=== PATIENT | male | born 1945 | race Caucasian/White ===

== ENCOUNTER 2016-07-04 19:42 | Inpatient (IN) | payer MEDICARE ==
[2016-07-04] MEDS ORDERED: IPRATROPIUM-ALBUTEROL 3 ML NEB INHALATION STA (19:47)
[2016-07-04] MEDS ORDERED: MORPHINE SULFATE 2 MG/ML SYRINGE IVP ONE (20:02)
[2016-07-04] MEDS ORDERED: LORazepam 2 MG/ML SYRINGE IV STA (20:02)
--- NOTE | 2016-07-04 20:11 | XR ---
EXAMINATION TYPE: XR chest 1V portable DATE OF EXAM: 07/04/2016 7:56 PM COMPARISON: NONE HISTORY: dyspnea TECHNIQUE: Single frontal view of the chest is obtained. FINDINGS: Right IJ catheter tip superimposed over the cavoatrial junction. There is ill-defined consolidative opacity throughout the left lower lobe, consistent with LLL pneumo crispin. The pleural spaces are negative. Cardiac silhouette mildly enlarged. Multiple old healed rib fractures are noted on the right. IMPRESSION: FINDINGS CONSISTENT WITH A CLINICAL DIAGNOSIS OF LEFT LOWER LOBE PNEUMONIA. Note: Follow up imaging is advised until proven resolution.
--- NOTE | 2016-07-04 20:23 | ED ---
General Adult HPI - General Chief complaint: Shortness of Breath Stated complaint: RAJ Time Seen by Provider: 07/04/16 19:46 Source: EMS, RN notes reviewed, old records reviewed Mode of arrival: EMS Limitations: altered mental status, physical limitation - History of Present Illness Initial comments: This is a 71-year-old [id number] cancer patient from [facility] for evaluation regarding severe respiratory distress. Patient unable to give history secondary medical and clinical condition. History obtained from EMS and patient's chart, per patient's chart and records he is a DO NOT RESUSCITATE. - Related Data Home Medications Medication Instructions Recorded Confirmed Acetaminophen Tab [Tylenol Tab] 650 mg PO DAILY PRN 07/04/16 07/04/16 Albuterol Sulfate [Proventil Hfa] 2 puff INHALATION RT-TID PRN 07/04/16 07/04/16 Allopurinol [Zyloprim] 300 mg PO DAILY 07/04/16 07/04/16 Amino Acids/Protein Hydrolys 30 ml PO BID 07/04/16 07/04/16 [Pro-Stat Supplement] Aspirin [Adult Low Dose Aspirin EC] 81 mg PO HS 07/04/16 07/04/16 Carvedilol [Coreg] 3.125 mg PO HS 07/04/16 07/04/16 Dexamethasone 4 mg PO Q12H 07/04/16 07/04/16 Ipratropium-Albuterol Nebulize 3 ml INHALATION RT-Q4H PRN 07/04/16 07/04/16 [Duoneb 0.5 mg-3 mg/3 ml Soln] Melatonin 3 mg PO HS 07/04/16 07/04/16 Mylanta Suspension 179-941-10zz/5ml 30 ml PO Q4H PRN 07/04/16 07/04/16 Omeprazole Magnesium Delayed 1 cap PO DAILY 07/04/16 07/04/16 Release 20.6mg Potassium Chloride ER [K-Dur 20] 20 meq PO HS 07/04/16 07/04/16 Allergies Allergy/AdvReac Type Severity Reaction Status Date / Time No Known Allergies Allergy Verified 07/04/16 20:17 Review of Systems ROS Statement: Those systems with pertinent positive or pertinent negative responses have been documented in the HPI. ROS Other: All systems not noted in ROS Statement are negative. Past Medical History Past Medical History: Unable to Obtain, Coronary Artery Disease (CAD), COPD, GERD/Reflux, Hypertension Additional Past Medical History / Comment(s): gout, idiopathic peripheral autonomic neuropathy, panctyopenia, viral meningitis, encephalopathy, deliriummyeloma, generalized weakness, arrhythmia, bph, cancer History of Any Multi-Drug Resistant Organisms: None Reported, Unobtainable Past Surgical History: Unable to Obtain Past Psychological History: No Psychological Hx Reported Smoking Status: Unknown if ever smoked Past Alcohol Use History: None Reported General Exam Limitations: altered mental status, physical limitation General appearance: alert, lethargic, in distress Head exam: Present: atraumatic, normocephalic, normal inspection Eye exam: Present: normal appearance, PERRL, EOMI. Absent: scleral icterus, conjunctival injection, periorbital swelling ENT exam: Present: normal exam, mucous membranes moist Neck exam: Present: normal inspection. Absent: tenderness, meningismus, lymphadenopathy Respiratory exam: Present: wheezes, rales, accessory muscle use, decreased breath sounds, prolonged expiratory. Absent: rhonchi, stridor Cardiovascular Exam: Present: normal rhythm, tachycardia, normal heart sounds. Absent: systolic murmur, diastolic murmur, rubs, gallop, clicks GI/Abdominal exam: Present: soft, normal bowel sounds. Absent: distended, tenderness, guarding, rebound, rigid Extremities exam: Present: normal inspection, full ROM, normal capillary refill. Absent: tenderness, pedal edema, joint swelling, calf tenderness Back exam: Present: normal inspection Neurological exam: Present: alert, oriented X3, CN II-XII intact Psychiatric exam: Present: normal affect, normal mood Skin exam: Present: warm, dry, intact, normal color. Absent: rash Course Vital Signs 07/04/16 07/04/16 07/04/16 19:44 19:55 20:10 Temperature 96.9 F L Pulse Rate 133 H 130 H 128 H Respiratory 60 H Rate Blood Pressure 125/85 O2 Sat by Pulse 97 Oximetry EKG Findings - EKG Comments: EKG Findings:: EKG shows sinus tachycardia rate 133, GA 134, QRS 98, QTC 452 Critical Care Time Critical Care Time: Yes Total Critical Care Time: 31 Disposition Clinical Impression: Acute exacerbation of chronic obstructive airways disease, Acute respiratory failure, Hypoxia, Nosocomial pneumonia Disposition: ADMITTED IP TO THIS HOSP Condition: Serious Referrals: Nabil Skinner MD [Primary Care Provider] - 1-2 days
[2016-07-04] MEDS ORDERED: LEVOFLOXACIN 750MG-D5W PMX 750 MG in DEXTROSE/WATER 1 150ML.BAG IVPB STA (20:27)
[2016-07-04] MEDS ORDERED: PIPERACILLIN-TAZOBACTAM 3.375 GM in DEXTROSE/WATER 1 50ML.BAG IVPB STA (20:27)
[2016-07-04] MEDS ORDERED: PNEUMONIA PROTOCOL UTILIZED 1 EACH MISC PO PRN (20:28)
[2016-07-04] MEDS ORDERED: SODIUM CHLORIDE 0.9% 1,000 ML IV STA (20:29)
[2016-07-04] MEDS ORDERED: SODIUM CHLORIDE 0.9% 500 ML IV STA (20:29)
[2016-07-04] MEDS ORDERED: methylPREDNISolone SOD SUCCI 125 MG/2 ML VIAL IV STA (20:29)
[2016-07-04 20:40] LABS: Anisocytosis Slight; CH 31.3; CHCM 32.8; HCT 57.3 % (39.0-53.0); HDW 2.59; HGB 18.4 gm/dL (13.0-17.5); Immature Gran Flag Marked; MCH 30.7 pg (25.0-35.0); MCHC 32.1 g/dL (31.0-37.0); MCV 95.6 fL (80.0-100.0); Mean Platelet Volume 7.5; RBC 5.99 m/uL (4.30-5.90); WBC 17.5 k/uL (3.8-10.6); WBC (Perox) 17.88
[2016-07-04 20:50] LABS: ALT 75 U/L (21-72); AST 63 U/L (17-59); Alkaline Phosphatase 94 U/L (38-126); Anion Gap 10 mmol/L; Blood Urea Nitrogen 45 mg/dL (9-20); Calcium 8.5 mg/dL (8.4-10.2); Carbon Dioxide 26 mmol/L (22-30); Chloride 109 mmol/L (98-107); Glucose 133 mg/dL (74-99); Magnesium 1.8 mg/dL (1.6-2.3); Non-African American GFR(MDRD) >60 (>60 ml/min/1.73 sqM); Potassium 5.3 mmol/L (3.5-5.1); Sodium 145 mmol/L (137-145); Total Bilirubin 1.3 mg/dL (0.2-1.3); Total Protein 5.3 g/dL (6.3-8.2)
[2016-07-04 20:58] LABS: Creatine Kinase <20 U/L (55-170)
[2016-07-04 20:59] LABS: Add Differential Manual Differential
[2016-07-04 21:02] LABS: Manual Review Performed; Nucleated Red Blood Cells 0 /100 WBC (0-0); Total Cells Counted 100
[2016-07-04 21:11] LABS: Creatine Kinase MB 1.2 ng/mL (0.0-2.4); Troponin I 0.024 ng/mL (0.000-0.034)
[2016-07-04 21:23] LABS: INR 1.7 (<1.1); Partial Thromboplastin Time 24.9 sec (22.0-30.0); Prothrombin Time 16.9 sec (9.0-12.0)
[2016-07-04] MEDS ORDERED: RX INFO: IV CONTRAST WAS GIVEN 1 EACH MISC MISCELLANE PRN (21:47)
[2016-07-04] MEDS: SODIUM CHLORIDE 0.9% 1,000 ML IV SCH (22:38)
--- NOTE | 2016-07-04 22:43 | CT ---
EXAM: CT Angiography Chest With Intravenous Contrast CLINICAL HISTORY: Reason: Pain TECHNIQUE: Axial computed tomographic angiography images of the chest with intravenous contrast using pulmonary embolism protocol. CTDI is 51.30 mGy and DLP is 445.60 mGy-cm This CT exam was performed using one or more of the following dose reduction techniques: automated exposure control, adjustment of the mA and/or kV according to patient size, and/or use of iterative reconstruction technique. MIP reconstructed images were created and reviewed. COMPARISON: No relevant prior studies available. FINDINGS: Artifacts: Motion related artifact is present. Pulmonary arteries: No central or segmental PE is seen; assessment of the peripheral, subsegmental branches is limited. Aorta: No thoracic aortic aneurysm. Lungs: Extensive consolidation involving most of the left lower lobe, with patchy infiltrates elsewhere including left upper lobe, right upper and lower lobes, the latter appearing somewhat nodular and measuring up to 2.9 cm on series 5 image 94. Pleural space: Trace left pleural effusion. No pneumothorax. Heart: Coronary artery calcification is present. Mild cardiomegaly and suggestion of mild left ventricular hypertrophy. No significant pericardial effusion. Bones/joints: The bones are osteopenic and there are multiple chronic appearing fractures, involving multiple ribs, left L1 and L2 transverse processes, and as partially included the distal left clavicle. There is a lucent focus present within the T11 vertebral body. There is diffuse sclerosis of the L1 vertebral body and posterior elements, as well as diffusely sclerotic appearance of the left fourth rib posteriorly. There has been previous lower cervical fusion. Lymph nodes: No adenopathy is seen.. Stomach and bowel: Distended stomach, filled with air and small amount of layering fluid where there is a total present in the gastric fundus. IMPRESSION: 1. Limited, without evidence of central or segmental PE. 2. Diffuse left lower lobe consolidation, with multifocal patchy infiltrates elsewhere throughout the lungs, suggesting the presence of ongoing airspace disease/pneumonia. Correlate clinically, and follow-up is recommended to ensure clearing and exclude other etiologies. 3. Diffuse osteopenia with multiple nonacute rib fractures as well as lucent and sclerotic lesions as above. Is there a known history of primary neoplasm or myeloma?
[2016-07-05] MEDS ORDERED: MORPHINE SULFATE 2 MG/ML SYRINGE IVP ONE (02:11)
[2016-07-05] MEDS ORDERED: LORazepam 2 MG/ML SYRINGE IV STA (02:11)
[2016-07-05 04:00] LABS: Glucose,Whole Blood 161 mg/dL (75-99)
[2016-07-05 05:19] LABS: Anisocytosis Slight; CH 30.7; CHCM 32.1; HCT 52.2 % (39.0-53.0); HDW 2.55; HGB 16.4 gm/dL (13.0-17.5); MCH 30.1 pg (25.0-35.0); MCHC 31.4 g/dL (31.0-37.0); MCV 95.8 fL (80.0-100.0); Mean Platelet Volume 7.8; RBC 5.45 m/uL (4.30-5.90); RDW 16.7 % (11.5-15.5); WBC 13.2 k/uL (3.8-10.6)
[2016-07-05 05:46] LABS: Anion Gap 8 mmol/L; Blood Urea Nitrogen 44 mg/dL (9-20); Calcium 8.1 mg/dL (8.4-10.2); Carbon Dioxide 27 mmol/L (22-30); Chloride 111 mmol/L (98-107); Glucose 151 mg/dL (74-99); Magnesium 1.9 mg/dL (1.6-2.3); Non-African American GFR(MDRD) >60 (>60 ml/min/1.73 sqM); Phosphorous 5.3 mg/dL (2.5-4.5); Potassium 4.4 mmol/L (3.5-5.1); Sodium 146 mmol/L (137-145)
[2016-07-05] MEDS ORDERED: Magnesium Replacement Protocol 1 EACH MISC MISCELLANE PRN (06:00)
[2016-07-05] MEDS: MAGNESIUM SULFATE-D5W PMX 1 GM in DEXTROSE/WATER 1 100ML.BAG IVPB SCH ×2 (06:40→08:42)
[2016-07-05] MEDS: SODIUM CHLORIDE 0.9% 1,000 ML IV SCH ×2 (06:40→16:30)
[2016-07-05 06:48] LABS: Appearance,Urine Clear (Clear); Bilirubin,Urine Negative (Negative); Glucose,Urine (UA) Negative (Negative); Ketones,Urine Negative (Negative); Leukocyte Esterase,Urine Negative (Negative); Nitrite,Urine Negative (Negative); PH, Urine 5.5 (5.0-8.0); Protein,Urine Trace (Negative); Specific Gravity,Urine 1.044 (1.001-1.035); UA Billing (MACRO vs. MICRO) CHEM; Urobilinogen,Urine <2.0 mg/dL (<2.0)
[2016-07-05] MEDS: IPRATROPIUM-ALBUTEROL 3 ML NEB INHALATION SCH ×3 (07:28→17:14)
[2016-07-05] MEDS ORDERED: PIPERACILLIN-TAZOBACTAM 3.375 GM in DEXTROSE/WATER 1 50ML.BAG IVPB SCH (08:00)
[2016-07-05] MEDS ORDERED: ENOXAPARIN 40 MG/0.4 ML SYRINGE SQ SCH (09:00)
[2016-07-05 09:03] LABS: Glucose,Whole Blood 129 mg/dL (75-99)
--- NOTE | 2016-07-05 09:35 | XR ---
EXAMINATION TYPE: XR chest 1V portable DATE OF EXAM: 07/05/2016 6:23 AM COMPARISON: 07/04/2016 HISTORY: Shortness of breath TECHNIQUE: Single frontal view of the chest is obtained. FINDINGS: Mediport catheter and surgical clips in the axilla noted. Arthropathy of the shoulders. Le ft-sided consolidation and pleural effusion is stable. Chronic rib deformities noted. Arthropathy of the shoulders. Previous surgery involving the cervical spine. IMPRESSION: 1. Left lower lobe infiltrate and small effusion are stable.
[2016-07-05] MEDS ORDERED: SODIUM CHLORIDE 0.9% 1,000 ML IV ONE (09:50)
[2016-07-05 10:01] LABS: Glucose,Whole Blood 135 mg/dL (75-99)
[2016-07-05 10:19] LABS: ABG HCO3 22 mmol/L (21-25); ABG PCO2 30 mmHg (35-45); ABG PH 7.48 (7.35-7.45); ABG PO2 73 mmHg (83-108); ABG TCO2 23 mmol/L (19-24)
[2016-07-05 12:06] LABS: Glucose,Whole Blood 112 mg/dL (75-99)
[2016-07-05] MEDS ORDERED: ACETAMINOPHEN TAB 325 MG TAB PO PRN (13:01)
[2016-07-05] MEDS ORDERED: MAG HYDROX/AL HYDROX/SIMETH 30 ML CUP PO PRN (13:01)
[2016-07-05 13:10] LABS: Hemoglobin A1C 5.2 % (4.2-6.1)
[2016-07-05] MEDS ORDERED: DEXAMETHASONE 4 MG TAB PO SCH (13:15)
[2016-07-05 14:05] LABS: Glucose,Whole Blood 125 mg/dL (75-99)
--- NOTE | 2016-07-05 14:12 | HP ---
DATE OF ADMISSION: Most of the history is obtained from the medical records. It appears like patient has advanced multiple myeloma. Patient is not on any treatment. I do not know the further details. Patient at one point of time was treated. Patient has 2 Power of Attorneys who are [id number] in [place] and patient's CODE STATUS IS DO NOT RESUSCITATE. Patient basically was sent in here because of severe respiratory distress, found to have pneumonia on CT angio of the chest which was done which showed left lower lobe consolidation, multiple patchy opacities and although I am not able to open up the images, which I will try to do it in a different computer and diffuse osteopenia consistent with multiple myeloma and patient is arousable. Patient is on 100% nonrebreather at this point of time. Patient is on broad-spectrum antibiotics and covering for healthcare-associated pneumonia since he is a residential resident and I do not know his baseline, which is not available even to the nursing staff. Will get in touch with the residential to evaluate for his baseline, so that it will help us make decisions for his long-term goals of care including hospice which the patient is more approximate for. Patient was started Zosyn and levofloxacin. For now will continue with that. Blood cultures and sputum cultures were obtained. So far they are negative and patient has severe sepsis with lactic acidosis, acute right hypoxic respiratory failure secondary to pneumonia. REVIEW OF SYSTEMS: Unable to obtain due to his clinical condition and above-mentioned reasons. Home medications include acetaminophen, albuterol, allopurinol, amino acids, aspirin, Coreg, Decadron, Mylanta, potassium chloride. ALLERGIES: No known drug allergies. PAST MEDICAL HISTORY: Unable to obtain, but patient appears to have multiple myeloma, not on any treatment, COPD, gastroesophageal reflux disease and I do not know his baseline mental status. Patient appears to have significant toxic encephalopathy and acute hypoxic respiratory failure. SOCIAL HISTORY: Unable to obtain. FAMILY HISTORY: Unable to obtain. PHYSICAL EXAMINATION: VITAL SIGNS: Temperature 97.5, pulse of 103, respiratory rate of 20, and blood pressure is 120/67, saturating at 92% on 10 L of O2 by 100% nonrebreather. GENERAL: Patient is arousable, excessively drowsy, unable to assess orientation. NEUROLOGICAL: Unable to assess due to above-mentioned reasons. LUNG EXAMINATION: Diffuse crackles in the left lower lung field, bronchophony and egophony were appreciated, rhonchorous breath sounds. HEENT: Pupils are round and equally reacting to light. EOMI. No scleral icterus. No conjunctival pallor. Normocephalic, atraumatic. No pharyngeal erythema. No thyromegaly. CARDIOVASCULAR: S1 and S2 present. No murmurs, rubs, or gallops. ABDOMEN: Patient does have a colostomy bag in place. Patient does have stool in colostomy bag. Patient has a wound V.A.C. MUSCULOSKELETAL: No joint swelling or deformity. EXTREMITIES: No cyanosis, clubbing, or pedal edema. NEUROLOGICAL: Gross neurological examination did not reveal any focal deficits. SKIN: No rashes. . LABORATORY DATA: CBC, CMP are abnormal for elevated WBC count of 7,500, sodium of 146, potassium 4.4, his potassium was elevated to 5.3, BUN and creatinine essentially within normal limits but not for his body mass, may be can consider as renal failure for his body mass, lactic acid is 2.7 came down to 2.3 and now getting IV fluids. ASSESSMENT AND PLAN: 1. Severe sepsis secondary to a ( ) pneumonia. Patient is on above-mentioned antibiotics. Will obtain blood cultures, sputum cultures. 2. Acute hypoxic respiratory failure secondary to left lower lobe pneumonia and possibility of chronic obstructive pulmonary disease. Patient is also on systemic steroids, inhalational treatments. 3. Toxic encephalopathy from pneumonia. 4. Multiple myeloma. Patient's disease appears to be advanced. The patient is most appropriate for comfort care. Will discuss the same thing with the family members today, once we find them and will also have to find the baseline. Patient is critically ill with severe sepsis, lactic acidosis for which will continue with IV fluids. Patient's tachycardia appears to be reflex tachycardia. 5. Gastroesophageal reflux disease. MTDD
[2016-07-05 14:22] VITALS: BMI 22.1
[2016-07-05] MEDS ORDERED: HYDROmorphone 1 MG/ML 1 ML SYRINGE IVP PRN (14:29)
[2016-07-05] MEDS ORDERED: HALOPERIDOL LACTATE 5 MG/ML 1 ML VIAL IM PRN (14:29)
[2016-07-05] MEDS ORDERED: ONDANSETRON 4 MG/2 ML VIAL IVP PRN (14:29)
[2016-07-05] MEDS ORDERED: POLYETHYLENE GLYCOL 3350 17 GM POWD.PACK PO PRN (14:29)
--- NOTE | 2016-07-05 14:32 | P.CNPUL ---
History of Present Illness Consult date: 07/05/16 Requesting physician: Victorino Guo Reason for consult: pneumonia Chief complaint: Altered mental status and physical limitation History of present illness: This is a 71-year-old white male senior care resident with history of multiple myeloma, peripheral autonomic neuropathy, history of pancytopenia, viral meningitis, encephalopathy, generalized weakness, gout, patient has been chronically ill because of his underlying multiple myeloma. He was brought in last night to the ER with mostly complaints of mental status change and medical debility and physical limitation. Patient was also complaining of shortness of breath and he was not noted to be in severe respiratory distress upon arrival. The patient himself is a very poor historian. Hence workup in the ER included CT of the chest showing no evidence of pulmonary embolism, however there was extensive consolidation involving most of the left lower lobe with patchy infiltrates noted in the left upper lobe and right upper lobe as well as right lower lobe. The infiltrates have a nodular appearance to them. There was also a trace of left pleural effusion. No evidence of pericardial effusion noted. CBC showed leukocytosis with WBC count of 17.5, hemoglobin was 18.4, platelets were low at 1 23,000s, d-dimer was 10.09 INR of 1.7. ABG in the ICU showed a pO2 of 73 pCO2 of 30 and pH of 7.48 and this was on a non-rebreather mask. Basic metabolic profile showed slight hypernatremia, BUN of 45 creatinine of 0.70. Sugar of 133. Lactic acid upon arrival was 2.7, follow-up lactic acid was 2.3. Liver enzymes were borderline elevated. Pro BNP was slightly elevated. Albumin was 2.8. Urinalysis was relatively unremarkable. Patient was given fluid boluses in the ER, started empirically on antibiotics, and he was admitted to the ICU with DO NOT RESUSCITATE CODE STATUS, and I was asked to see him on consultation. Again the patient is a very poor historian, he looks chronically ill frail, and debilitated. Review of Systems ROS unobtainable: due to mental status Past Medical History Past Medical History: Unable to Obtain, Coronary Artery Disease (CAD), COPD, GERD/Reflux, Hypertension Additional Past Medical History / Comment(s): gout, idiopathic peripheral autonomic neuropathy, panctyopenia, viral meningitis, encephalopathy, deliriummyeloma, generalized weakness, arrhythmia, bph, cancer History of Any Multi-Drug Resistant Organisms: None Reported, Unobtainable Past Surgical History: Unable to Obtain Past Psychological History: No Psychological Hx Reported Smoking Status: Unknown if ever smoked Past Alcohol Use History: None Reported Medications and Allergies Home Medications Medication Instructions Recorded Confirmed Type Acetaminophen Tab [Tylenol Tab] 650 mg PO DAILY PRN 07/04/16 07/04/16 History Albuterol Sulfate [Proventil Hfa] 2 puff INHALATION RT-TID PRN 07/04/16 History Allopurinol [Zyloprim] 300 mg PO DAILY 07/04/16 07/04/16 History Amino Acids/Protein Hydrolys 30 ml PO BID 07/04/16 07/04/16 History [Pro-Stat Supplement] Aspirin [Adult Low Dose Aspirin EC] 81 mg PO HS 07/04/16 07/04/16 History Carvedilol [Coreg] 3.125 mg PO HS 07/04/16 07/04/16 History Dexamethasone 4 mg PO Q12H 07/04/16 07/04/16 History Ipratropium-Albuterol Nebulize 3 ml INHALATION RT-Q4H PRN 07/04/16 07/04/16 History [Duoneb 0.5 mg-3 mg/3 ml Soln] Melatonin 3 mg PO HS 07/04/16 07/04/16 History Mylanta Suspension 468-852-00xm/5ml 30 ml PO Q4H PRN 07/04/16 07/04/16 History Omeprazole Magnesium Delayed 1 cap PO DAILY 07/04/16 07/04/16 History Release 20.6mg Potassium Chloride ER [K-Dur 20] 20 meq PO HS 07/04/16 07/04/16 History Allergies Allergy/AdvReac Type Severity Reaction Status Date / Time No Known Allergies Allergy Verified 07/04/16 20:17 Physical Exam Vitals: Vital Signs Temp Pulse Pulse Resp BP Pulse Ox 07/05/16 13:00 107 H 32 H 125/72 91 L 07/05/16 12:50 107 H 35 H 125/72 07/05/16 12:40 107 H 36 H 122/66 91 L 07/05/16 12:30 107 H 32 H 122/66 93 L 07/05/16 12:20 109 H 32 H 122/66 94 L 07/05/16 12:10 108 H 34 H 129/73 93 L 07/05/16 12:00 97.5 F L 109 H 37 H 129/73 92 L 07/05/16 11:50 108 H 28 H 129/73 93 L 07/05/16 11:40 106 H 29 H 130/71 93 L 07/05/16 11:30 104 H 29 H 130/71 94 L 07/05/16 11:27 103 H 07/05/16 11:20 103 H 30 H 130/71 94 L 07/05/16 11:17 102 H 07/05/16 11:10 104 H 33 H 120/67 93 L 07/05/16 11:00 104 H 21 120/67 96 07/05/16 10:50 102 H 23 120/67 94 L 07/05/16 10:40 99 23 112/71 94 L 07/05/16 10:30 102 H 25 H 112/71 94 L 07/05/16 10:20 100 22 112/71 94 L 07/05/16 10:10 102 H 23 121/71 93 L 07/05/16 10:00 99 24 121/71 90 L 07/05/16 09:50 101 H 26 H 121/71 92 L 07/05/16 09:40 101 H 28 H 127/60 91 L 07/05/16 09:30 101 H 27 H 127/60 93 L 07/05/16 09:20 102 H 25 H 127/60 92 L 07/05/16 09:10 99 24 136/66 93 L 07/05/16 09:00 98 23 136/66 92 L 07/05/16 08:50 100 26 H 136/66 91 L 07/05/16 08:40 100 26 H 121/66 90 L 07/05/16 08:30 98 25 H 121/66 91 L 05 08:20 98 24 121/66 92 L 07/05/16 08:10 96 26 H 108/66 91 L 07/05/16 08:00 97.5 F L 96 22 108/66 91 L 0417 07:50 98 22 108/66 90 L 07/05/16 07:40 97 21 118/78 91 L 07/05/16 07:38 97 04 07:30 99 20 118/78 92 L 05 07:28 99 05//17 07:20 98 15 118/78 90 L 07/05/16 07:10 96 24 131/70 90 L 07/05/16 07:00 95 24 131/70 92 L 07/05/16 06:50 96 24 131/70 89 L 07/05/16 06:40 95 24 119/73 92 L 07/05/16 06:30 93 12 119/73 93 L 07/05/16 06:20 93 27 H 119/73 92 L 07/05/16 06:10 91 28 H 119/74 96 07/05/16 06:00 94 31 H 119/74 97 07/05/16 05:50 98 28 H 119/74 97 07/05/16 05:40 94 25 H 115/66 98 07/05/16 05:30 92 24 115/66 98 07/05/16 05:20 95 26 H 115/66 98 07/05/16 05:10 94 24 119/68 98 07/05/16 05:00 93 23 119/68 98 07/05/16 04:50 93 25 H 119/68 97 07/05/16 04:40 93 28 H 118/75 100 07/05/16 04:34 96 24 07/05/16 04:30 91 24 118/75 99 07/05/16 04:20 91 29 H 118/75 99 07/05/16 04:10 93 31 H 112/70 97 07/05/16 04:00 97.7 F 89 21 112/70 98 07/05/16 03:37 97.2 F L 89 23 106/71 99 07/05/16 03:07 92 22 110/70 98 07/05/16 02:37 92 21 106/68 97 07/05/16 02:07 94 21 105/71 99 07/05/16 01:37 94 24 100/67 95 07/05/16 01:07 94 22 100/67 94 L 07/05/16 00:07 98 22 104/70 99 07/04/16 23:37 102 H 22 109/64 94 L 07/04/16 22:37 106 H 22 100/52 99 07/04/16 21:37 108 H 24 131/73 97 07/04/16 21:03 117 H 22 97/69 97 Intake and Output 0507/05/16 07/05/16 22:59 06:59 14:59 Intake Total 300 312.5 Output Total 635 172 Balance -335 140.5 Intake: IV 300 312.5 Magnesium Sulfate-D5w Pmx 100 1 gm In Dextrose/Water 1 100ml.bag @ 100 mls/hr IVPB Q1H POLA Rx#: [id number] Piperacillin-Tazobactam 3 12.5 .375 gm In Dextrose/Water 1 50ml.bag @ 12.5 mls/hr IVPB ONCE STA Rx#: [id number] Sodium Chloride 0.9% 1, 300 200 000 ml @ 100 mls/hr IV . Q10H POLA Rx#:[id number] Output: Urine 635 172 Other: Voiding Method Indwelling Catheter Indwelling Catheter Weight 74 kg Physical Exam: Revealed a 71-year-old white male, chronically ill, debilitated, on non-rebreather mask, not in distress, but noted to be a bit drowsy/arousable. HEENT:[Neck is supple.] [No neck masses.] [No thyromegaly.] [No JVD.] Chest: Diffuse crackles at the bases especially at the left base, rhonchi bilaterally were noted..] Cardiac Exam: [Normal S1 and S2, no S3 gallop, no murmur.] Abdomen: [Soft, nontender, no megaly, no rebound, no guarding, normal bowel sounds.] Extremities: [No clubbing, trace edema, no cyanosis.] Neurological Exam: Patient is generally weak, debilitated, does not follow instructions. Results - Laboratory Findings CBC and BMP: 07/05/16 04:55 07/05/16 04:55 ABG ABG pH 7.48 (7.35-7.45) H 07/05/16 10:15 ABG pCO2 30 mmHg (35-45) L 07/05/16 10:15 ABG pO2 73 mmHg (83-108) L 07/05/16 10:15 ABG O2 Saturation 96.0 % (94-97) 07/05/16 10:15 PT/INR, D-dimer PT 16.9 sec (9.0-12.0) H 07/04/16 20:15 INR 1.7 (<1.1) 05/03/17 20:15 D-Dimer 10.09 mg/L FEU (<0.60) H 07/04/16 20:15 Abnormal lab findings: Abnormal Labs 07/05/16 07/05/16 07/05/16 03:57 04:55 04:55 WBC 13.2 H RDW 16.7 H Plt Count 81 L ABG pH ABG pCO2 ABG pO2 Sodium Chloride BUN Creatinine Glucose POC Glucose (mg/dL) 161 H Plasma Lactic Acid Jeyson 2.3 H* Calcium Phosphorus Ur Specific [place] Urine Protein 07/05/16 07/05/16 07/05/16 04:55 06:31 09:02 WBC RDW Plt Count ABG pH ABG pCO2 ABG pO2 Sodium 146 H Chloride 111 H BUN 44 H Creatinine 0.60 L Glucose 151 H POC Glucose (mg/dL) 129 H Plasma Lactic Acid Jeyson Calcium 8.1 L Phosphorus 5.3 H Ur Specific [place] 1.044 H Urine Protein Trace H 07/05/16 07/05/16 07/05/16 09:59 10:15 12:05 WBC RDW Plt Count ABG pH 7.48 H ABG pCO2 30 L ABG pO2 73 L Sodium Chloride BUN Creatinine Glucose POC Glucose (mg/dL) 135 H 112 H Plasma Lactic Acid Jeyson Calcium Phosphorus Ur Specific [place] Urine Protein 07/05/16 14:02 WBC RDW Plt Count ABG pH ABG pCO2 ABG pO2 Sodium Chloride BUN Creatinine Glucose POC Glucose (mg/dL) 125 H Plasma Lactic Acid Jeyson Calcium Phosphorus Ur Specific [place] Urine Protein - Diagnostic Findings Chest x-ray: image reviewed CT scan - chest: image reviewed (As noted above in my history of the present illness.) Assessment and Plan Plan: Impression: 1Acute sepsis secondary to pneumonia mostly involving the left lower lobe. This is likely a healthcare associated pneumonia since the patient was a senior care resident for quite some time. 2 acute multifocal pneumonia but mostly involving the left lower lobe. 3 acute hypoxic respiratory failure secondary to pneumonia, possible underlying COPD. 4 history of multiple myeloma, advanced. Last chemotherapy was over 6 months ago. 5 acute metabolic encephalopathy secondary to sepsis. Recommendation: Continue present treatment plan including fluids, pressors if needed, antibiotics, patient is presently on Levaquin and Zosyn. These will be adjusted based on any positive cultures if available. Continue bronchodilators. Continue GI and DVT prophylaxis. Close monitoring of the sugars. Patient is not a good candidate for bronchoscopy and left lower lobe evaluation at this point. Hence we will have to treat empirically. Prognosis is definitely poor and guarded. Time with Patient: Greater than 30
[2016-07-05] MEDS ORDERED: SCOPOLAMINE 1.5MG/72HR PATCH TRANSDERM PRN (15:00)
[2016-07-05 16:55] VITALS: TEMP 98.6
[2016-07-05] MEDS ORDERED: INSULIN LISPRO (humaLOG) 300 UNIT/3 ML VIAL SQ SCH (17:30)
[2016-07-05 18:01] VITALS: BP 132/68; PULSE 108; RESP 36
[2016-07-05] MEDS ORDERED: METOPROLOL TARTRATE 25 MG TAB PO SCH (21:00)
[2016-07-05] MEDS ORDERED: ASPIRIN 81 MG CHEW PO SCH (21:00)
[2016-07-05] MEDS ORDERED: LEVOFLOXACIN 750MG-D5W PMX 750 MG in DEXTROSE/WATER 1 150ML.BAG IVPB SCH (21:00)
[2016-07-05] MEDS ORDERED: NON-FORMULARY DRUG (Amino Acids/Protein Hydrolys [Pro-Stat Supplement] 30 ML) PO SCH (21:00)
[2016-07-06] MEDS ORDERED: PANTOPRAZOLE 40 MG TABLET PO SCH (07:30)
--- NOTE | 2016-07-24 10:34 | DS ---
DATE OF ADMISSION: 07/04/2016 DATE OF DISCHARGE: 07/05/2016 DATE OF SERVICE: 07/05/2016 Patient was made comfort care. Please refer to my dictation of H&P for further details.
== END 2016-07-05 18:10 | disposition hospice, inpatient (51) | DRG 871 ==
LOC: EC 19:42 → 6ICU 20:28
PROVIDERS: ADMIT Hospitalist; ATTEND Hospitalist
DX: A41.9 Sepsis, unspecified organism (principal); J18.9 Pneumonia, unspecified organism; J96.01 Acute respiratory failure with hypoxia; G92 Toxic encephalopathy; E87.2 Acidosis; C90.00 Multiple myeloma not having achieved remission; E87.0 Hyperosmolality and hypernatremia; J44.0 Chronic obstructive pulmonary disease with (acute) lower respiratory infection; R65.20 Severe sepsis without septic shock; Z66 Do not resuscitate; Z51.5 Encounter for palliative care; Y95 Nosocomial condition; G90.09 Other idiopathic peripheral autonomic neuropathy; K21.9 Gastro-esophageal reflux disease without esophagitis; M10.9 Gout, unspecified; I25.10 Atherosclerotic heart disease of native coronary artery without angina pectoris; N40.0 Benign prostatic hyperplasia without lower urinary tract symptoms; M85.80 Other specified disorders of bone density and structure, unspecified site; I10 Essential (primary) hypertension; Z79.82 Long term (current) use of aspirin; Z79.899 Other long term (current) drug therapy
CPT/HCPCS: 36415; 36600; 71010; 71275; 80048; 80053; 81003; 82550; 82553; 82805; 83036; 83605; 83735; 83880; 84100; 84484; 85025; 85027; 85379; 85610; 85730; 87040; 87077; 87086; 87186; 93005; 94640; 94660; 96365; 96366; 96368; 96375; 99291

== ENCOUNTER 2016-07-05 18:14 | Inpatient (IN) | payer MEDICAID ==
[2016-07-05 18:40] VITALS: BMI 22.1
[2016-07-05] MEDS ORDERED: LORazepam 2 MG/ML SYRINGE IV PRN (18:49)
[2016-07-05] MEDS ORDERED: BISACODYL 10 MG SUPP RECTAL PRN (18:53)
[2016-07-05] MEDS ORDERED: ACETAMINOPHEN SUPPOSITORY 650 MG SUPP RECTAL PRN (18:54)
[2016-07-05] MEDS ORDERED: ONDANSETRON 4 MG/2 ML VIAL IVP PRN (18:55)
[2016-07-05] MEDS ORDERED: MORPHINE SULFATE 100 MG in SODIUM CHLORIDE 0.9% 100 ML IV SCH (19:00)
[2016-07-05] MEDS ORDERED: SCOPOLAMINE 1.5MG/72HR PATCH TRANSDERM SCH (19:00)
[2016-07-05] MEDS ORDERED: IPRATROPIUM-ALBUTEROL 3 ML NEB INHALATION SCH (20:00)
[2016-07-05] MEDS ORDERED: IPRATROPIUM-ALBUTEROL 3 ML NEB INHALATION PRN (20:42)
[2016-07-06] MEDS ORDERED: ATROPINE OPHTH SOLN 1% 5ML BTL SUBLINGUAL PRN (10:47)
[2016-07-06] MEDS ORDERED: SCOPOLAMINE 1.5MG/72HR PATCH TRANSDERM SCH ×2 (11:00→11:15)
[2016-07-06] MEDS: ATROPINE OPHTH SOLN 1% 5ML BTL SUBLINGUAL SCH ×3 (11:17→21:20)
[2016-07-06 16:18] VITALS: BP 116/73; PULSE 134; RESP 24; TEMP 98.6
--- NOTE | 2016-07-06 16:26 | P.PN ---
Subjective Date of service 07/06/2016 Progress note being dictated for Dr. Dey General history: This a 71-year-old gentleman admitted with severe sepsis secondary to healthcare associated pneumonia-, lactic acidosis, acute hypoxic respiratory failure, toxic encephalopathy in a patient with advanced multiple myeloma, on comfort care with hospice-[facility]. Maintained on morphine drip, increased secretions, restless, opens eyes to noxious stimuli. Mottling extremities. Objective - Vital Signs Vital signs: Vital Signs Temp 97.0 F L 07/06/16 07:00 Pulse 108 H 07/06/16 07:00 Resp 23 07/06/16 07:00 BP 143/71 07/06/16 07:00 Pulse Ox 86 L 07/06/16 07:00 Intake & Output 07/05/16 07/06/16 07/06/16 18:59 06:59 18:59 Intake Total 4.383 15.125 Balance 4.383 15.125 Weight 74 kg 74 kg Intake: Intake, IV Titration 4.383 15.125 Amount Morphine Sulfate 100 mg 4.383 15.125 In Sodium Chloride 0.9% 100 ml @ Titrate IV .Q0M [facility] Rx#:[id number] Other: Voiding Method Indwelling Catheter - Exam PHYSICAL EXAM: GENERAL: [Lying in bed, restless, opens eyes to turning-noxious stimuli only RESPIRATORY EFFORT:increased LUNGS: Scattered rhonchi and crackles throughout increased secretions CARDIOVASCULAR regular S1 and S2 no murmur rub or gallop GI: [Abdomen soft, nontender, nondistended Assessment and Plan Plan: 1. [Severe sepsis secondary to healthcare associated pneumonia-acute multifocal pneumonia -mostly left lower lobe, lactic acidosis with reflex tachycardia]. 2. [Acute hypoxic respiratory failure secondary to left lobe pneumonia, possible COPD exacerbation]. 3. [Acute Toxic, metabolic encephalopathy from sepsis, pneumonia]. 4. [Multiple myeloma, advanced, ]. 5. [Gastroesophageal reflux disease]. 6. [No code, no CPR, no intubation]. 7. [Comfort care]. 8. Hospice-[facility] Plan: Continue on comfort care protocol. Titrate morphine drip to comfort. Additional scopolamine patch placed with atropine drops around the clock added to med regime for increased secretions. Further recommendations to follow. The impression and plan of care has been dictated as directed. : I performed a H&P examination of this patient and discussed the same with the dictator. I agree with the dictator's note. Any additional findings/opinions/ etc. will be noted.
--- NOTE | 2016-07-07 20:33 | DS ---
DATE OF ADMISSION: 07/05/2016 DATE OF DISCHARGE: 07/07/2016 The patient was in hospice. The patient was admitted for sepsis secondary to bilateral pneumonia. The patient has advanced multiple myeloma, because of which the patient was made hospice. The patient earlier today morning. Please refer to nursing documentation for time and date of . Preliminary cause of is sepsis secondary to bilateral pneumonia with contribution from multiple myeloma and severe immunosuppression.
== END 2016-07-07 06:16 | disposition expired | DRG 871 ==
LOC: 6ICU 18:14 → 4MS4W 19:21
PROVIDERS: ADMIT Hospitalist; ATTEND Hospitalist
DX: A41.9 Sepsis, unspecified organism (principal); J18.9 Pneumonia, unspecified organism; J96.01 Acute respiratory failure with hypoxia; G92 Toxic encephalopathy; C90.00 Multiple myeloma not having achieved remission; E87.2 Acidosis; J44.0 Chronic obstructive pulmonary disease with (acute) lower respiratory infection; J44.1 Chronic obstructive pulmonary disease with (acute) exacerbation; R65.20 Severe sepsis without septic shock; Z51.5 Encounter for palliative care; Y95 Nosocomial condition; K21.9 Gastro-esophageal reflux disease without esophagitis